=== PATIENT | male | born 1970 | race Hispanic/Latino ===

== ENCOUNTER 2019-10-21 14:42 | Emergency (ER) | payer SELFPAY ==
--- NOTE | ~2019-10-21 | XR_ITS ---
EXAMINATION: XR finger 3rd LT min 2V DATE: 10/21/2019 15:11 INDICATION: Left hand third digit injury. TECHNIQUE: 4 views of left hand third digit were obtained. COMPARISON: None. FINDINGS: There is a comminuted intra-articular fracture of base of third proximal phalanx. The main distal fracture fragment demonstrates 4 mm ulnar displacement and 15 degrees radial angulation. Joint spaces are normal. IMPRESSION: 1. Comminuted intra-articular fracture of base of third proximal phalanx. Reviewed, dictated and finalized at location A.
[2019-10-21 15:01] VITALS: BP 148/91; PULSE 132; RESP 16; TEMP 37.2; O2SAT 97
--- NOTE | 2019-10-21 15:33 | ED.UPPEXIN ---
HPI - Extremity Injury (Upper) General Chief Complaint: Extremity Injury, Upper Stated Complaint: hand injury Time Seen by Provider: 10/21/19 15:33 Source: patient Mode of arrival: ambulatory Limitations: no limitations History of Present Illness HPI narrative: Emanuel Chen is a 49 yo male with no known PMH who comes with L 3rd finger pain and swelling in an injury that occurred just prior to arrival. Also has L ankle swelling from twisting it at work a few days ago Related Data Allergies Allergy/AdvReac Type Severity Reaction Status Date / Time No Known Allergies Allergy Unverified 12/05/15 19:16 Review of Systems Review of Systems: Narrative: CONSTITUTIONAL: Denies fever, chills, sweats. EYES: Denies visual changes, redness, discharge. ENT: Denies rhinorrhea, congestion, sore throat, otalgia. CARDIOVASCULAR: Denies chest pain, palpitations, edema. RESPIRATORY: Denies dyspnea, wheezing, cough GASTROINTESTINAL: Denies abdominal pain, nausea, vomiting, diarrhea. GENITOURINARY: Denies dysuria, hematuria, abnormal discharge SKIN: Denies rash or itching. NEUROLOGIC: Denies numbness, or focal weakness. PSYCHIATRIC: Denies anxiety or depression. Pain and swelling of L hand and L ankle (separate complaints) PMFSH Family History Family History Other No acute medical problems Social History Social History Smoking status: Current some day smoker Alcohol intake: current Gender identity (if verbalized by the patient): Male Comments At time of signature, I agree with nursing past medical, surgical, social and family history. There is no relevant family history pertinent to the presenting complaint. BP elevated at time of visit due to pain from injury Exam Narrative: Exam Narrative: GENERAL: This is a well-nourished, well-developed patient, in mild distress. HEAD: normocephalic, atraumatic. EYES: Sclera clear/white. Vision is grossly intact. EARS: External ears normal. Hearing grossly intact. NOSE: External nose normal without nasal discharge, nares without redness, no rhinorrhea. THROAT: Mucous membranes moist, NECK: Neck supple, CARDIOVASCULAR: Regular rate and rhythm without murmurs, gallops, or rubs. RESPIRATORY: Clear to auscultation. Breath sounds equal bilaterally. No wheezes, rales, or rhonchi. GASTROINTESTINAL: Abdomen soft, SKIN: warm, intact with no suspicious lesions or rash, good texture and turgor. NEURO: awake, alert, and oriented to person, place and time. There were no obvious focal neurologic abnormalities. Steady gait EXTREMITIES: L hand swelling - third finger with angulation, inable to do finger opposition or make fist. edematous but warm to touch and 2+ radial pulse. 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 Called placed to his service. Pt is uninsured Splint placed on hand- given toradol for pain; refused Xray of foot, did not want alyssa wrap to L ankle 1550 Dr Flores returned call and agrees to see pt in his office this week- agrees with splint/ pain meds Vital Signs Vital signs: Vital Signs Temperature 98.9 F 10/21/19 15:01 Pulse Rate 132 H 10/21/19 15:01 Respiratory Rate 16 10/21/19 15:01 Blood Pressure 148/91 H 10/21/19 15:01 Pulse Oximetry 97 10/21/19 15:01 Temperature 98.9 F 10/21/19 15:01 Pulse Rate 132 H 10/21/19 15:01 Respiratory Rate 16 10/21/19 15:01 Blood Pressure 148/91 H 10/21/19 15:01 Pulse Oximetry 97 10/21/19 15:01 MDM - Extremity Injury (Upper) Imaging Data Radiologist's impression: Comminuted fracture of the base third L phalynx. 4mm ulnar displacement with 15
[2019-10-21] MEDS: KETOROLAC (*BKC) 60 MG/2 ML VIAL IM (15:53)
== END 2019-10-21 16:30 | disposition home or self-care (01) ==
PROVIDERS: Emergency Provider Nurse Practitioner
DX: S62.92XA Unspecified fracture of left hand, initial encounter for closed fracture (principal); X58.XXXA Exposure to other specified factors, initial encounter; F17.210 Nicotine dependence, cigarettes, uncomplicated
CPT/HCPCS: 29130; 73140; 96372; 99214; G0463; J1885

== ENCOUNTER 2021-06-15 16:16 | Emergency (ER) | payer SELFPAY ==
--- NOTE | ~2021-06-15 | XR_ITS ---
XR ribs LT 2V w CXR 2V DATE: 06/15/2021 17:07 INDICATION: Patient fell, striking left ribs. Left rib pain. TECHNIQUE: PA and lateral chest. 3 views of left ribs. The right COMPARISON: None FINDINGS: There are recent fractures of the anterolateral aspect of the left sixth rib and posterolat eral aspect of the left eighth rib, with minimal displacement. Normal heart size. No hilar or mediastinal enlargement. No pulmonary infiltrate or consolidation, pleural effusion or pulmonary vascular congestion or pneumo thorax. IMPRESSION: Recent left sixth and eighth rib fractures; no pneumothorax, pleural effusion or pulmonar y contusion is evident Reviewed, dictated and finalized at location A. [employer] IMPRESSION: Recent left sixth and eighth rib fractures; no pneumothorax, pleura l effusion or pulmonary contusion is evident
[2021-06-15 16:26] VITALS: BP 131/87; PULSE 83; RESP 18; TEMP 36.8; O2SAT 98
--- NOTE | 2021-06-15 16:51 | ED.FALL ---
HPI - Fall General Chief Complaint: Fall Stated Complaint: Left Side Pain Time Seen by Provider: 06/15/21 16:45 Source: patient and RN notes reviewed Mode of arrival: ambulatory Limitations: no limitations History of Present Illness HPI Narrative: Patient presents today complaining of left lateral rib pain. 2 days ago, he fell at home accidentally, injuring his ribs. Currently rates his pain 7/10 and has been taking Tylenol with mild relief. Pain increases with movement and cough. Reports very mild shortness of breath. MD complaint: fall (Left rib pain) Related Data Allergies Allergy/AdvReac Type Severity Reaction Status Date / Time No Known Allergies Allergy Verified 06/15/21 17:26 Review of Systems Review of Systems: CONSTITUTIONAL: Denies body aches, fever, chills, or sweats. EYES: Denies visual changes, redness, or discharge. ENT: Denies rhinorrhea, congestion, sore throat, or otalgia. CARDIOVASCULAR: Denies chest pain, palpitations, or edema. RESPIRATORY: Denies cough or dyspnea. GASTROINTESTINAL: Denies abdominal pain, nausea, vomiting, or diarrhea. GENITOURINARY: Denies dysuria or hematuria. SKIN: Denies rash, itching, or wounds. MUSCULOSKELETAL: Denies back pain, joint pain, or myalgia. Rib pain NEUROLOGIC: Denies headache, numbness, tingling, or weakness. PSYCH: Denies depression or anxiety. [facility] Family History Family History Other No acute medical problems Social History Social History Smoking status: Current some day smoker Alcohol intake: current Gender identity (if verbalized by the patient): Male Comments At time of signature, I have reviewed and agree with nursing past medical, surgical, social and family history unless otherwise noted. Please see nursing chart for further information. There is no relevant family history pertinent to the presenting complaint Exam Narrative: GENERAL: Well-appearing, well-nourished, and in no acute distress. HEAD: Normocephalic, atraumatic. EYES: EOMI. No redness or drainage. Conjunctivae normal. ENT: Mucous membranes pink and moist. NECK: Normal AROM. CHEST: No respiratory distress. Clear to auscultation. HEART: Regular rate and rhythm. No murmur appreciated. Normal peripheral pulses. ABDOMEN: Soft, nontender, nondistended, normal active bowel sounds. MUSCULOSKELETAL: Tenderness to the left lateral ribs without erythema, ecchymosis, or edema noted. No crepitus, step-off, or deformity noted. EXTREMITIES: Normal range of motion. No edema. SKIN: Warm, dry, no rash. Capillary refill normal. Normal skin turgor. NEURO: No focal deficits. Alert and oriented x3. Gait steady. PSYCH: Normal affect. No signs of depression or anxiety. Course Course Level of Care: Express Care Visit Vital Signs Vital signs: Vital Signs Temperature 98.2 F 06/15/21 16:26 Pulse Rate 83 06/15/21 16:26 Respiratory Rate 18 06/15/21 16:26 Blood Pressure 131/87 06/15/21 16:26 Pulse Oximetry 98 06/15/21 16:26 Temperature 98.2 F 06/15/21 16:26 Pulse Rate 83 06/15/21 16:26 Respiratory Rate 18 06/15/21 16:26 Blood Pressure 131/87 06/15/21 16:26 Pulse Oximetry 98 06/15/21 16:26 Reviewed. Pt has been instructed to follow up with his PCP regarding his elevated blood pressure today. MDM - Fall Differential Diagnosis Differential diagnosis: Likely other (Rib fracture, chest wall contusion) Imaging Data Radiologist's impression: ITS Impressions Ribs w/Chest X-Ray 06/15/21 17:08 IMPRESSION: Recent left sixth and eighth rib fractures; no pneumothorax, pleural effusion or pulmonary contusion is evident Critical Care Time Critical Care Time Critical Care Time: No Discharge Plan Discharge Clinical Impression: Closed rib fracture Qualifiers: Encounter type: initial encounter Rib fracture type: multipl
== END 2021-06-15 17:38 | disposition home or self-care (01) ==
PROVIDERS: Emergency Provider Nurse Practitioner
DX: S22.42XA Multiple fractures of ribs, left side, initial encounter for closed fracture (principal); W19.XXXA Unspecified fall, initial encounter; F17.200 Nicotine dependence, unspecified, uncomplicated
CPT/HCPCS: 71046; 71100; 99213; G0463